=== PATIENT | male | born 1950 | race Caucasian/White ===

== ENCOUNTER → 2020-08-29 13:09 | Outpatient (CLI) | payer OTHER, SELFPAY ==
--- NOTE | 2020-08-29 13:12 | DI.RAD.S_ITS ---
PROCEDURE: XR LUMBAR SPINE MIN 4V INDICATIONS: BACK PAIN TECHNIQUE: 5 views of the lumbar spine were acquired, including bilateral oblique views. COMPARISON: [facility], MR, MR LUMBAR SPINE WITHOUT CONTRAST, 04/10/2017, 10:57. [facility], CR, XR LUMBAR SPINE WITH OBLIQUES, 02/11/2017, 14:14. FINDINGS: Bones: 5 nonrib-bearing vertebrae are present. There is mild dextroscoliosis otherwise normal bony alignment. No vertebral body compression fractures. No suspicious bony lesions. Severe degenerative disc disease at L1-L2, L2-L3, L3-L4 and L4-L5. There is severe facet arthropathy at L4-L5 and L5-S1. Soft tissues: Overlying bowel gas pattern is normal. No suspicious soft tissue calcifications. Cholecystectomy. Severe atherosclerosis of distal abdominal aorta and common iliac arteries. Oblique images: No pars defects. IMPRESSION: 1. Severe degenerative disc and facet disease in lumbar spine. 2. Mild dextroscoliosis. Dictated by: Leila Alexandra M.D. on 08/29/2020 at 17:40 Approved by: Leila Alexandra M.D. on 08/29/2020 at 17:43
== END ==
PROVIDERS: Family Provider Internal Medicine; PCP Family Medicine Sports Medicine; Referring Provider Physical Medicine & Rehabilitation; Visit Provider Physical Medicine & Rehabilitation
DX: M54.9 Dorsalgia, unspecified (principal); M51.36 Other intervertebral disc degeneration, lumbar region; M47.816 Spondylosis without myelopathy or radiculopathy, lumbar region; M47.817 Spondylosis without myelopathy or radiculopathy, lumbosacral region; M41.9 Scoliosis, unspecified
CPT/HCPCS: 72110

== ENCOUNTER → 2020-09-20 11:14 | Outpatient (CLI) | payer OTHER, SELFPAY ==
[2020-09-20 12:50] LABS: COVID19 -Nasal RAPID Negative (Negative)
== END ==
PROVIDERS: Family Provider Internal Medicine; PCP Family Medicine Sports Medicine; Visit Provider Physician Assistant
DX: Z01.812 Encounter for preprocedural laboratory examination (principal); Z20.822 Contact with and (suspected) exposure to COVID-19
CPT/HCPCS: 87635

== ENCOUNTER 2020-09-21 07:49 | Day surgery (SDC) | payer OTHER, SELFPAY ==
[2020-09-18 07:53] VITALS: BMI 20.7
[2020-09-21 08:30] VITALS: BMI 20.7
[2020-09-21 08:54] VITALS: BP 116/75; PULSE 82; RESP 16; TEMP 36.8; O2SAT 99
[2020-09-21] MEDS: LACTATED RINGERS 1,000 ML 42 ML IV (08:59)
--- NOTE | 2020-09-21 09:26 | PM.PREOP ---
Pre-operative Note COVID-19 COVID-19 status: Negative Interval Note History & Physical reviewed/Exam performed by Physician: Yes Changes to H&P: No
[2020-09-21] MEDS: CEFAZOLIN 1 GM VIAL 2 GM IV (09:40)
--- NOTE | 2020-09-21 09:48 | SUR.OPER ---
Addendum entered by Karlie Jenkins R.N. 09/21/20 10:05: Warm blankets also placed on patient. Original Note: Supine on padded OR bed, head on pillow, right arm secured on padded arm boards at <90 degrees abduction, Left arm on padded arm board extension and in control of the surgeon, legs uncrossed, safety belt at thigh.
[2020-09-21] MEDS: BUPIVACAINE 0.5% W/ EPI (PF) 30 ML VIAL INJ (10:03)
[2020-09-21 10:57] VITALS: BP 111/73; PULSE 86; RESP 14; TEMP 36.2; O2SAT 96
--- NOTE | 2020-09-21 11:03 | P.OP_ITS ---
Operative Date/Time/Diagnoses Date of procedure: 09/21/20 Time of procedure: 10:00 Pre-op diagnosis: Left small finger Dupuytren's contracture Post-op diagnosis: same Procedure & Clinicians Procedure: Left small finger Dupuytren's contracture release Same procedure as scheduled: Yes Indications: Left small finger Dupuytren's contracture Surgeon: Sigifredo Hernandez Click Yes if Unassisted: Yes Anesthesia Type: Peripheral nerve block Operative Notes Findings: 90 degree contracture to the PIP joint of the left small finger. Cord formation in the palm of the hand as well as a very thick collateral cord formation in the finger. No significant MCP joint contracture. Closure Type: primary Specimen(s): none sent Estimated Blood Loss (mL): 2 Blood products transfused: none Tourniquet time (min): 47 Procedure in detail: On date of service, patient was met in the holding area. The surgery was once again discussed with the patient and any remaining questions or concerns were answered fully. The operative site was signed and w itnessed by the OR staff. Patient was taken back to the operating theater and placed on the operating table in a supine position. Great care was taken to ensure that all bony prominences were properly padded. Time-out was performed verifying patient's name, procedure, and operative site. A well-padded tourniquet was placed up along the upper extremity. The arm was then prepped and draped in the normal sterile fashion. Esmarch was used to exsanguinate the limb and the tourniquet was turned up to 250 mm of mercury. The a Cee type incision was made starting at the finger crease at the DIP joint and going proximal to the just proximal to the proximal palmar crease. Fifteen blade was used to incise through skin and fascial tissue. Sharp dissection was continued with the deep knife excising the skin and dermal tissue off the cord formation. The neurovascular bundles were found proximally and dissected free up into the finger. The radial digital nerve was not involved with the cord but the ulnar digital nerve was involved with the cord up into the finger. Quite a bit of scarring of the Dupuytren's tissue around the ulnar digital nerve. Great care was taken to ensure that the nerves were dissected completely free of the cord. Patient also had a lateral cord formation involving the PIP joint. Once the finger and palm were fully exposed and we had good visualization of the cord as well as our neurovascular bundles, the cord formation was dissected free from the flexor tendon proximally. This dissection was continued up into the finger and till the entire cord was removed in 1 piece. This allowed us to fully extend both the MCP as well as extend the PIP joint to about 20? short of full extension. With some pressure the finger could be fully extended but I did place quite a bit of tension across the neurovascular bundles. The digital nerves were inspected and were free of any damage throughout the entire incision. The wound was then copiously irrigated a nd then closed with 5 0 nylon. Finger was cleaned, dried, and dressed. Patient was placed into a splint keeping the small finger extended at about 30? short of full extension. Complications: none Post-operative Condition: stable Disposition: PACU Plan for aftercare: Patient will be in the splint until he sees the hand therapist. At that point patient will be converted to a nighttime brace. No restrictions of range of motion no lifting more than 2-3 lb for the next 2 weeks.
[2020-09-21 12:00] VITALS: BP 115/76; PULSE 82; RESP 16; TEMP 36.6; O2SAT 97
== END 2020-09-21 12:15 | disposition home or self-care (01) ==
PROVIDERS: Family Provider Internal Medicine; PCP Family Medicine Sports Medicine; Referring Provider Orthopaedic Surgery; Visit Provider Orthopaedic Surgery
PROC: (CPT 26045; principal; 2020-09-21 10:00)
DX: M72.0 Palmar fascial fibromatosis [Dupuytren] (principal); E78.5 Hyperlipidemia, unspecified; K21.9 Gastro-esophageal reflux disease without esophagitis; E11.9 Type 2 diabetes mellitus without complications; Z79.84 Long term (current) use of oral hypoglycemic drugs; J44.9 Chronic obstructive pulmonary disease, unspecified; I10 Essential (primary) hypertension
CPT/HCPCS: 26123; J0690; J2250

== ENCOUNTER 2022-01-22 09:03 | Outpatient (CLI) | payer OTHER, SELFPAY ==
--- NOTE | 2022-01-22 09:04 | DI.RAD.S_ITS ---
PROCEDURE: PAIN C/T FACET INJ/BLK 1ST L INDICATIONS: SPONDYLOSIS COMPARISON: [facility], CT, CT CHEST WITHOUT CONTRAST, 12/31/2021, 8:55. FINDINGS: Fluoroscopic spot filming was performed to verify placement of spinal needles on the left at the T8-T9, T9-T10, and T10-T11 levels, as labeled on the films. Appropriate location of the needle tips was confirmed by injection of iodinated contrast. IMPRESSION: Intraprocedural examination demonstrating appropriate positions of the needles. Dictated by: Fred Mota M.D. on 01/22/2022 at 10:08 Approved by: Fred Mota M.D. on 01/22/2022 at 10:09
[2022-01-22 09:12] VITALS: BP 113/72; PULSE 76; RESP 16; TEMP 36.3; O2SAT 99
[2022-01-22 10:08] VITALS: BP 110/55; PULSE 73; RESP 15; O2SAT 97
[2022-01-22 10:13] VITALS: BP 108/56; PULSE 70; RESP 16; O2SAT 100
[2022-01-22] MEDS: BUPIVACAINE 0.5% (PF) VIAL 2 ML INJ (10:14)
[2022-01-22] MEDS: DEXAMETHASONE 10 MG/ML VIAL 30 MG INJ (10:14)
[2022-01-22] MEDS: IOPAMIDOL 15 ML VIAL 3 ML INJ (10:14)
[2022-01-22 10:18] VITALS: BP 116/56; PULSE 69; RESP 19; O2SAT 97
[2022-01-22 10:20] VITALS: BP 99/56; PULSE 69; RESP 20; O2SAT 96
--- NOTE | 2022-01-22 10:24 | P.PCN_ITS ---
Date/Time/Diagnoses Date of procedure: 01/22/22 Time of procedure: 10:24 Pre-procedure diagnosis: 1. FACET ARTHROPATHY 2. AXIAL THORACIC PAIN Post-procedure diagnosis: same Procedure Notes Procedure: 1. FLUOROSCOPICALLY GUIDED, CONTRAST-CONTROLLED LEFT T8/9, T9/10, T10/11 FACET JOINT INJECTIONS WITH CONSCIOUS SEDATION. Indications: Brenda is referred by Dr. Moser for treatment of Axial Thoracic Pain Physician: Wil Alvarez Total Fluoroscopy time (seconds): 9 Total sedation minutes: 0 Complications: none Procedure in detail & Post-procedure care: DESCRIPTION OF PROCEDURE Fluoroscopically guided, contrast-controlled left T8/9, T9/10, T10/11 facet joint injections with conscious sedation. Following review of allergy and review of potential side effects and complications, including, but not necessarily limited to, infection, allergic reaction, local tissue breakdown, stroke, temporary or permanent nerve injury and paralysis, the patient indicated that the patient understood and agreed to p roceed. An informed consent document was signed by the patient, witnessed by a nurse, and placed in the patient's chart. Additionally, other treatment options including medications, modalities, and physical therapy were reviewed with the patient. After review of previous anaesthesic history and IV conscious sedation the patient was deemed safe to proceed with today?s procedure with IV conscious sedation as ASA class II designation. Safety time-out was performed to confirm patient ID, procedure to be performed and site of procedure. IV sedation was deemed unnecessary administered by the RN after DO order, titrated to patient comfort during the course of the procedure while the patient remained responsive to all verbal commands In the prone position, following sterile prep and drape of the cervical spine region, the posterior aspect of the left T8/9, T9/10, T10/11 facet joints were identified fluoroscopically. The skin was anesthetized via a 25-gauge 1.5-inch needle with 1% lidocaine solution into the corresponding facet joints. At this point, a 25-gauge 2.5-inch spinal needle was atraumatically introduced and advanced under fluoroscopic guidance into the corresponding facet joints. Following negative aspiration, injections of approximately 0.2cc of Isovue 200 confirmed interarticular placement without vascular uptake. At this point, a total of 1cc including 0.5cc or 5mg of dexamethasone combined with 0.5cc of 1% lidocaine solution was injected without complication into each of the corresponding facet joints. The procedure tolerated the procedure well without signs or symptoms of complications prior to transfer to the recovery area continued monitoring without incident. The patient was then transferred to the recovery area where they were observed for an appropriate period of time after the injection. The patient reported a VAS score of 7 prior to the procedure and a post- procedure VAS of 0. POST OP INSTRUCTIONS They were provided a Pain Log to continue to record their response to the target-specific procedure prior to their follow-up visit with their referring physician. Additionally, specific post-injection care instructions and a contact number to our office were provided if concerns arise regarding possible complications associated with the procedure are suspected.
[2022-01-22 10:27] VITALS: BP 115/66; PULSE 76; RESP 16; O2SAT 99
== END 2022-01-22 10:33 | disposition home or self-care (01) ==
LOC: RAD 09:04
PROVIDERS: Family Provider Internal Medicine; PCP Family Medicine Sports Medicine; Referring Provider Physical Medicine & Rehabilitation; Visit Provider Physical Medicine & Rehabilitation
DX: M47.814 Spondylosis without myelopathy or radiculopathy, thoracic region (principal)
CPT/HCPCS: 64490; 64491; 64492; J1100

== ENCOUNTER 2022-10-17 08:35 | Outpatient (CLI) | payer OTHER, SELFPAY ==
[2022-10-17] VITALS (7 sets, daily range): BP systolic 104–125; BP diastolic 55–77; PULSE 69–83; RESP 16–78; TEMP 36.6; O2SAT 97–100
--- NOTE | 2022-10-17 08:35 | DI.RAD.S_ITS ---
PROCEDURE: PAIN C/T FACET INJ/BLK 1ST L INDICATIONS: SPONDYLOSIS COMPARISON: [facility], , PAIN C/T FACET INJ/BLK 1ST L, 01/22/2022, 10:11. FINDINGS: Fluoroscopic spot filming was performed to verify placement of spinal needles overlying T8-9, T9-10, T10-11. level(s), as labeled on the films. Appropriate location(s) of the needle tip(s) was confirmed by injection of iodinated contrast. IMPRESSION: Lower thoracic lumbar needle localization. Dictated by: Tia Atkins M.D. on 10/17/2022 at 14:46 Approved by: Tia Atkins M.D. on 10/17/2022 at 14:47
[2022-10-17] MEDS: BUPIVACAINE 0.5% (PF) 10 ML VIAL 5 ML INJ (09:52)
[2022-10-17] MEDS: IOPAMIDOL 15 ML VIAL 3 ML INJ (09:52)
[2022-10-17] MEDS: DEXAMETHASONE 10 MG/ML VIAL 30 MG INJ (09:53)
--- NOTE | 2022-10-17 10:07 | P.PCN_ITS ---
Date/Time/Diagnoses Date of procedure: 10/17/22 Time of procedure: 10:07 Pre-procedure diagnosis: 1. FACET ARTHROPATHY 2. AXIAL NECK PAIN Post-procedure diagnosis: same Procedure Notes Procedure: 1. FLUOROSCOPICALLY GUIDED, CONTRAST-CONTROLLED LEFT T8/9, T9/10, T10/11 FACET JOINT INJECTIONS. Indications: Brenda is referred by Dr. Moser for treatment of Axial Thoracic Pain Physician: Wil Alvarez Total Fluoroscopy time (seconds): 19 Total sedation minutes: 0 Complications: none Procedure in detail & Post-procedure care: DESCRIPTION OF PROCEDURE Fluoroscopically guided, contrast-controlled left T8/9, T9/10, T10/11 facet joint injections with conscious sedation. Following review of allergy and review of potential side effects and complications, including, but not necessarily limited to, infection, allergic reaction, local tissue breakdown, stroke, temporary or permanent nerve injury and paralysis, the patient indicated that the patient understood and agreed to proceed. An informed consent document was signed by the patient, witnessed by a nurse, and placed in the patient's chart. Additionally, other treatment options including medications, modalities, and physical therapy were reviewed with the patient. After review of previous anaesthesic history and IV conscious sedation the patient was deemed safe to proceed with today?s procedure with IV conscious sedation as ASA class II designation. Safety time-out was performed to confirm patient ID, procedure to be performed and site of procedure. IV sedation was deemed unnecessary and thus not administered by the RN after DO order, titrated to patient comfort during the course of the procedure while the patient remained responsive to all verbal commands In the prone position, following sterile prep and drape of the cervical spine region, the posterior aspect of the left T8/9, T9/10, T10/11 facet joints were identified fluoroscopically. The skin was anesthetized via a 25-gauge 1.5-inch needle with 1% lidocaine solution into the corresponding facet joints. At this point, a 25-gauge 2.5-inch spinal needle was atraumatically introduced and advanced under fluoroscopic guidance into the corresponding facet joints. Foll owing negative aspiration, injections of approximately 0.2cc of Isovue 200 confirmed interarticular placement without vascular uptake. At this point, a total of 1cc including 0.5cc or 5mg of dexamethasone combined with 0.5cc of 1% lidocaine solution was injected without complication into each of the corresponding facet joints. The procedure tolerated the procedure well without signs or symptoms of complications prior to transfer to the recovery area continued monitoring without incident. The patient was then transferred to the recovery area where they were observed for an appropriate period of time after the injection. The patient reported a VAS score of 7 prior to the procedure and a post- procedure VAS of 0. POST OP INSTRUCTIONS They were provided a Pain Log to continue to record their response to the target-specific procedure prior to their follow-up visit with their referring physician. Additionally, specific post-injection care instructions and a contact number to our office were provided if concerns arise regarding possible complications associated with the procedure are suspected.
== END 2022-10-17 10:07 | disposition home or self-care (01) ==
LOC: RAD 08:35
PROVIDERS: Family Provider Internal Medicine; PCP Family Medicine Sports Medicine; Referring Provider Physical Medicine & Rehabilitation; Visit Provider Physical Medicine & Rehabilitation
DX: M47.814 Spondylosis without myelopathy or radiculopathy, thoracic region (principal)
CPT/HCPCS: 64490; 64491; 64492; J1100

== ENCOUNTER 2023-11-13 08:15 | Outpatient (CLI) | payer OTHER, SELFPAY ==
[2023-11-13 08:26] VITALS: BP 126/76; PULSE 85; RESP 15; TEMP 35.8; O2SAT 97
--- NOTE | 2023-11-13 08:45 | DI.RAD.S_ITS ---
PROCEDURE: PAIN C/T FACET INJ/BLK 1ST L INDICATIONS: Left T8/9, T9/10, T10/11 facet injuections COMPARISON: [facility], , PAIN C/T FACET INJ/BLK 1ST L, 10/17/2022, 9:47. FINDINGS: Fluoroscopic spot filming was performed to verify placement of spinal needles at the left T8-9, T9-10, T10-11 level(s), as labeled on the films. Appropriate location(s) of the needle tip(s) was confirmed by injection of iodinated contrast. IMPRESSION: Fluoroscopic guidance utilized for left-sided thoracic facet injections. Dictated by: Altaf Penn M.D. on 11/13/2023 at 14:23 Approved by: Altaf Penn M.D. on 11/13/2023 at 14:26
[2023-11-13 08:55] VITALS: BP 132/63; PULSE 81; RESP 18; O2SAT 98
[2023-11-13 09:00] VITALS: BP 128/62; PULSE 70; RESP 21; O2SAT 99
[2023-11-13] MEDS: BUPIVACAINE 0.5% (PF) 10 ML VIAL 2 ML INJ (09:03)
[2023-11-13] MEDS: iopamidoL 15 ML VIAL 3 ML INJ (09:03)
[2023-11-13] MEDS: DEXAMETHASONE 10 MG/ML VIAL 30 MG INJ (09:04)
[2023-11-13 09:05] VITALS: BP 127/67; PULSE 69; RESP 15; O2SAT 99
[2023-11-13 09:10] VITALS: BP 126/70; PULSE 69; RESP 15; O2SAT 99
[2023-11-13 09:18] VITALS: BP 134/83; PULSE 73; RESP 14; O2SAT 97
--- NOTE | 2023-11-13 09:18 | P.PCN_ITS ---
Date/Time/Diagnoses Date of procedure: 11/13/23 Time of procedure: 09:18 Pre-procedure diagnosis: 1. FACET ARTHROPATHY 2. AXIAL THORACIC PAIN Post-procedure diagnosis: same Procedure Notes Procedure: 1. FLUOROSCOPICALLY GUIDED, CONTRAST-CONTROLLED LEFT T8/9, T9/10, T10/11 FACET JOINT INJECTIONS. Indications: Brenda is referred by Dr. Moser for treatment of Axial Neck Pain Physician: Wil Alvarez Total Fluoroscopy time (seconds): 8 Total sedation minutes: 0 Complications: none Procedure in detail & Post-procedure care: DESCRIPTION OF PROCEDURE Fluoroscopically guided, contrast-controlled left T8/9, T9/10, T11/12 facet joint injections with conscious sedation. Following review of allergy and review of potential side effects and complications, including, but not necessarily limited to, infection, allergic reaction, local tissue breakdown, stroke, temporary or permanent nerve injury and paralysis, the patient indicated that the patient understood and agreed to proceed. An informed consent document was signed by the patient, witnessed by a nurse, and placed in the patient's chart. Additionally, other treatment options including medications, modalities, and physical therapy were reviewed with the patient. After review of previous anaesthesic history and IV conscious sedation the patient was deemed safe to proceed with today?s procedure with IV conscious sedation as ASA class II designation. Safety time-out was performed to confirm patient ID, procedure to be performed and site of procedure. IV sedation was not administered administered by the RN after DO order, titrated to patient comfort during the course of the procedure while the patient remained responsive to all verbal commands In the prone position, following sterile prep and drape of the cervical spine region, the posterior aspect of the left T8/9, T9/10, T11/12 facet joints were identified fluoroscopically. The skin was anesthetized via a 25-gauge 1.5-inch needle with 1% lidocaine solution into the corresponding facet joints. At this point, a 25-gauge 2.5-inch spinal needle was atraumatically introduced and advanced under fluoroscopic guidance into the corresponding facet joints. Following negative aspiration, injections of approximately 0.2cc of Isovue 200 confirmed interarticular placement without vascular uptake. At this point, a total of 1cc including 0.5cc or 5mg of dexamethasone combined with 0.5cc of 1% lidocaine solution was injected without complication into each of the corresponding facet joints. The procedure tolerated the procedure well without signs or symptoms of complications prior to transfer to the recovery area continued monitoring without incident. The patient was then transferred to the recovery area where they were observed for an appropriate period of time after the injection. The patient reported a VAS score of 7 prior to the procedure and a post- procedure VAS of 0. POST OP INSTRUCTIONS They were provided a Pain Log to continue to record their response to the target-specific procedure prior to their follow-up visit with their referring physician. Additionally, specific post-injection care instructions and a contact number to our office were provided if concerns arise regarding possible complications associated with the procedure are suspected.
== END 2023-11-13 09:25 | disposition home or self-care (01) ==
PROVIDERS: Family Provider Internal Medicine; PCP Family Medicine Sports Medicine; Referring Provider Physical Medicine & Rehabilitation; Visit Provider Physical Medicine & Rehabilitation
DX: M47.814 Spondylosis without myelopathy or radiculopathy, thoracic region (principal); M54.6 Pain in thoracic spine
CPT/HCPCS: 64490; 64491; 64492; 64494; J1100